=== PATIENT | female | born 1950 | race Caucasian/White ===

== ENCOUNTER → 2017-08-18 | Outpatient (CLI) | payer OTHER, MEDICARE | LOC: BRMIMAGING 15:02 | DX: Z12.31 Encounter for screening mammogram for malignant neoplasm of breast (principal); Z80.3 Family history of malignant neoplasm of breast | CPT/HCPCS: G0202 ==

== ENCOUNTER 2018-04-27 05:11 | Inpatient (IN) | payer OTHER, MEDICARE ==
[2018-04-27] MEDS ORDERED: LIDOCAINE 1% 2 ML INJ ID PRN (05:45)
[2018-04-27] MEDS ORDERED: LR 1,000 ML IV ONE (05:45)
--- NOTE | 2018-04-27 06:50 | PDHPUP ---
History & Physical Update H&P update statement: This history and physical update is based on an assessment of the patient which was completed after admission or registration (within 24 hours), but prior to the surgery/procedure. H&P update: H&P reviewed & patient examined, no change in patient's condition since H&P completed (All questions answered. Consents signed and site marked.)
[2018-04-27] MEDS ORDERED: THROMBIN (BOVINE) 20,000 UNIT VIAL TP ONE ×3 (06:51→12:02)
[2018-04-27] MEDS ORDERED: BUPIVACAINE 0.25% 30 ML SDV ONE (06:52)
[2018-04-27] MEDS ORDERED: BACITRACIN 50,000 UNITS/10 ML SYR IRR ONE ×3 (06:52→12:20)
[2018-04-27] MEDS ORDERED: CHLORHEXIDINE GLUC HIBICLENS 118 ML BTL TP ONE (06:53)
[2018-04-27] MEDS ORDERED: VANCOMYCIN 1 GM VIAL ONE ×2 (06:53→13:21)
[2018-04-27] MEDS ORDERED: EPINEPHrine 1 MG/ML INJ ONE (06:53)
[2018-04-27] MEDS ORDERED: GABAPENTIN 300 MG CAP PO ONE (07:02)
[2018-04-27] MEDS ORDERED: morphINE SR 15 MG TAB PO ONE (07:02)
[2018-04-27] MEDS ORDERED: ACETAMINOPHEN 500 MG TAB PO ONE (07:02)
[2018-04-27] MEDS ORDERED: ceFAZolin 2 GM/DEXTROSE 100 ML IV ONE (07:02)
--- NOTE | 2018-04-27 07:28 | PDANEPAE ---
ANE Past Medical History - Cardiovascular History Hx Hypertension: No Hx Arrhythmias: No Hx Chest Pain: No Hx Coronary Artery / Peripheral Vascular Disease: No Hx CHF / Valvular Disease: No Hx Palpitations: No Cardiovascular History Comment: HX OF LOW BP - Pulmonary History Hx COPD: No Hx Asthma/Reactive Airway Disease: No Hx Recent Upper Respiratory Infection: No Hx Oxygen in Use at Home: No Hx Sleep Apnea: No Sleep Apnea Screening Result - Last Documented: Negative - Neurologic History Hx Cerebrovascular Accident: No Hx Seizures: No Hx Dementia: No - Endocrine History Hx Diabetes: No Endocrine History Comment: HYPOTHYROID - Renal History Hx Renal Disorders: No - Liver History Hx Hepatic Disorders: No - Neurological & Psychiatric Hx Hx Neurological and Psychiatric Disorders: Yes Neurological / Psychiatric History Comment: DEPRESSION - Cancer History Hx Cancer: Yes Cancer History Comment: COLON - Congenital Disorder History Hx Congenital Disorders: Yes Congenital History Comment: SCOLOSIS - GI History Hx Gastrointestinal Disorders: Yes Gastrointestinal History Comment: GASTRIC BYPASS 2000. GERD - Other Health History Other Health History: FLAT BACK. DDD. NT JANIA TOES - Chronic Pain History Chronic Pain: Yes (LOWER AND MIDDLE BACK,SOMETIME CERVICAL) - Surgical History Prior Surgeries: FAILED ATTEMPT AT HARDWARE REMVL AND REVISION DUE TO CARDIAC ARREST 11/2017 AT [facility]. LUMBAR FUSION/SACROPELVIS FUSION 2012. LT ILIAC VEIN ANGIOPLASTY. NEURO STIMULATOR 2013. JANIA CATARACT. TONSILLECTOMY. COLECTOMY FOR CA 1994. TUBAL LIGATION. JANIA REMVL GANGLION CYST. GASTRIC BYPASS 2000 ANE Review of Systems Review of Systems: - Exercise capacity METS (RN): 1 METS ANE Patient History - Allergies Allergies/Adverse Reactions: alendronate sodium [From Fosamax] Allergy (Severe, Verified 08/31/15 13:47) Vomiting amoxicillin trihydrate [From Augmentin] Allergy (Severe, Verified 08/31/15 13:47 ) Vomiting codeine [Codeine] Allergy (Severe, Verified 08/31/15 13:47) Vomiting metformin HCl [From Glucophage] Allergy (Severe, Verified 08/31/15 13:47) N/V NSAIDS (Non-Steroidal Anti-Inflamma Allergy (Severe, Verified 08/31/15 13:47) HIVES, VOMITING potassium clavulanate [From Augmentin] Allergy (Severe, Verified 08/31/15 13:47) Vomiting pregabalin [From Lyrica] Allergy (Severe, Verified 08/31/15 13:47) VOMITING, HIVES Sulfa (Sulfonamide Antibiotics) [Sulfa(Sulfonamide Antibiotics)] Allergy (Severe , Verified 08/31/15 13:47) HIVES, VOMITING acetaminophen [From Darvocet-N 100] Allergy (Intermediate, Verified 08/31/15 13: 47) Hives doxycycline Allergy (Intermediate, Verified 08/31/15 13:47) DIARRHEA, HIVES propoxyphene napsylate [From Darvocet-N 100] Allergy (Intermediate, Verified 09:04) Hives morphine Allergy (Unknown, Verified 08/12/13 09:04) Hives - Home Medications Home Medications: Abaloparatide [Tymlos] 1.56 ml SQ HS 04/23/18 [Last Taken 04/26/18 22:00] Calcium Carb W/Vit D [Calcium Carb W/Vit D 500/200 (*)] 500 mg PO BID 04/23/18 [ Last Taken 04/20/18] Cholecalciferol Vit D3 [Vitamin D3 2000 units tab (OTC)] 2,000 units PO DAILY [Last Taken 04/20/18] Cyanocobalamin [Vitamin B12 1000MCG/ML (*)] 1,000 mcg IM Q30D 04/23/18 [Last Taken 04/20/18] DULoxetine [Cymbalta 60 MG (*)] 120 mg PO DAILY 04/23/18 [Last Taken 04/27/18 03 :15] Esomeprazole Magnesium [Nexium] 20 mg PO DAILY 04/23/18 [Last Taken 04/27/18 03: 15] Herbals/Supplements -Info Only 1 ea PO DAILY 04/23/18 [Last Taken 04/20/18] LORazepam [Ativan (*)] 1 mg PO HS 04/23/18 [Last Taken 04/26/18 22:00] Levothyroxine [Synthroid 125 mcg (*)] 125 mcg PO DAILY06 04/23/18 [Last Taken 03:15] Multivitamins [Multivitamin (*)] 1 each PO DAILY 04/23/18 [Last Taken 04/20/18] [place]-3 Fatty Acids [Fish Oil 1000 mg (*)] 1,000 mg PO BID 04/23/18 [Last Taken 04/20/18] Tizanidine HCl 4 mg PO Q8HRS PRN 04/23/18 [Last Taken 04/27/18 03:30] oxyCODONE IR [Oxycodone Ir (*)] 15 mg PO Q6HRS PRN 04/23/18 [Last Taken 03:15] traZODone [traZODone 150MG (*)] 300 mg PO HS 04/23/18 [Last Taken 04/26/18 22:00 ] - NPO status NPO Since - Liquids (Date): 04/27/18 NPO Since - Liquids (Time): 03:15 NPO Since - Solids (Date): 04/26/18 NPO Since - Solids (Time): 22:00 - Smoking Hx Smoking Status: Never smoked ANE Labs/Vital Signs - Vital Signs Blood Pressure: 85/50 Heart Rate: 62 Respiratory Rate: 16 O2 Sat (%): 95 Height: 162.56 cm Weight: 71.668 kg ANE Physical Exam - Airway Neck exam: FROM Mallampati Score: Class 2 Mouth exam: dentures - Pulmonary Pulmonary: no respiratory distress - Cardiovascular Cardiovascular: regular rate and rhythym - ASA Status ASA Status: III ANE Anesthesia Plan Anesthesia Plan: general endotracheal anesthesia (art line, possible blood products. PION risks discussed)
[2018-04-27] MEDS ORDERED: PROPOFOL/EMULSION 500 MG/50 ML BOTTLE IV ONE ×3 (07:34→10:54)
[2018-04-27] MEDS ORDERED: ROCURONIUM 50 MG/5 ML VIAL ONE (07:34)
[2018-04-27] MEDS ORDERED: DEXAMETHASONE 4 MG/ML VIAL ONE (07:35)
[2018-04-27] MEDS ORDERED: LIDOCAINE 2% 100 MG/5 ML SYR ONE (07:35)
[2018-04-27] MEDS ORDERED: PHENYLEPHRINE 10 MG/ML SDV ONE (07:35)
[2018-04-27] MEDS ORDERED: PHENYLEPHRINE HCL 100 MCG/ML SYR ONE (07:35)
[2018-04-27] MEDS ORDERED: CITRATE DEXTROSE SOLN 500 ML BAG ONE ×2 (09:08→11:19)
[2018-04-27] MEDS ORDERED: SURGIFLO MATRIX KIT WITH THROMBIN 8 ML TP ONE ×2 (09:39→11:50)
[2018-04-27] MEDS ORDERED: DEXMEDETOMIDINE IN 0.9 % NACL 100 ML IV ONE (13:30)
[2018-04-27] MEDS ORDERED: BUPIVACAINE 0.5% 30 ML SDV ONE (13:40)
--- NOTE | 2018-04-27 14:36 | POSTOPPROG ---
Post Op Note Date of Operation: 04/27/18 Surgeon: Drew Steinberg Portrait Photographer: Romaine Godfrey Anesthesiologist: nan noonan Anesthesia: GET(General Endotracheal) Pre-op Diagnosis: degenerative scoliosis Post-op Diagnosis: degenerative scoliosis Indication: deformity and chronic pain Procedure: [id number] PSF, scoliosis deformity correction Findings: see full op note Inf/Abcess present in the surg proc area at time of surgery?: No Depth: Organ Space EBL: Greater than 1000 Drains: Mark Franco
[2018-04-27] MEDS ORDERED: diphenhydrAMINE 25 MG CAP PO PRN (14:38)
[2018-04-27] MEDS ORDERED: LACTULOSE 20 GM/30 ML UDCUP PO PRN (14:38)
[2018-04-27] MEDS ORDERED: BISACODYL 10 MG SUPP PR PRN (14:38)
[2018-04-27] MEDS ORDERED: ONDANSETRON 4 MG/2 ML VIAL IVP PRN ×2 (14:38→15:02)
[2018-04-27] MEDS ORDERED: ONDANSETRON DISINTEGRATING 4 MG TAB PO PRN (14:38)
[2018-04-27] MEDS ORDERED: MAGNESIUM HYDROXIDE 30 ML UDCUP PO PRN (14:38)
[2018-04-27] MEDS ORDERED: CYANO/VITAMIN B12 1000 MCG/ML VIAL IM SCH (15:00)
[2018-04-27] MEDS ORDERED: DEXMEDETOMIDINE HCL 400 MCG in NS 100 ML IV SCH (15:00)
[2018-04-27] MEDS ORDERED: ALBUTEROL 3 ML DEYVIAL IH PRN (15:02)
[2018-04-27] MEDS ORDERED: NALOXONE HCL 0.4 MG/ML INJ IVP PRN (15:02)
[2018-04-27] MEDS ORDERED: HYDROmorphONE/DILAUDID 1 MG/ML INJ IVP PRN (15:02)
--- NOTE | 2018-04-27 15:04 | POSTANESTH ---
Post Anesthetic Evaluation Cardiovascular Status: Similar to Pre-Op Cond Respiratory Status: Similar to Pre-op Cond. Level of Consciousness/Mental Status: Mildly Sleepy, Arousable Pain Control: Inadeq, Add Tx Required Nausea/Vomiting Control: Adequate, Prn Tx Ordered Complications Possibly Related to Anesthesia: None Noted
[2018-04-27] MEDS ORDERED: HYDROmorphONE/DILAUDID 6 MG/30 ML PCA IV PRN (15:15)
--- NOTE | 2018-04-27 15:57 | NEUSURGPN ---
Date of Surgery: 04/27/18 Post Op Day: 0 Assessment/Plan: 68F s/p [id number] with L12 TLIF and L3 PSO. >1L blood loss intraprocedure. To ICU overnight for pain control and hemodynamics LR 100ml/hr precedex and dilaudid WAFER FABRICATION OPERATOR for pain control ADAT no brace needed follow H&H in AM PT/OT JPX2 to full suction DVT ppx, TRANG's, SCD's, IVC placed preoperatively, Lovenox POD#1 Stinson out POD#1 Pt seen by and dw Dr. Valadez Subjective: no back pain, complaining of right sided abdominal pain Objective: VSS NAD speech clear and fluent, no facial droop [id number] grossly intact MAEx4, 5/5= SILT incision dressed, CDI. JPx2 to full suction. Urinary Catheter in Place: Yes Urinary Catheter Indication: Accurate I & O Required Neurosurgery Physical Exam - Vitals, I&O, Labs I and O 04/26/18 04/27/18 04/28/18 05:59 05:59 05:59 Weight 71.668 kg Vital Signs Temp Pulse Resp BP Pulse Ox 37.2 C 112 H 24 H 159/138 H 99 04/27/18 15:09 04/27/18 15:09 04/27/18 15:09 04/27/18 15:09 04/27/18 15:09 ICD10 Worksheet Patient Problems: Problems Problem Status Onset Bacteremia Acute
--- NOTE | 2018-04-27 16:30 | PDMN ---
Medical Necessity Medical necessity: Mcare IP only surgery; [id number] Revision w/L12 TLIF & L3 PSO (cpt 88686, 60595, [id number], 46537)
[2018-04-27] MEDS: HYDROmorphONE/DILAUDID 1 MG/ML INJ IVP PRN ×2 (17:01→20:42)
[2018-04-27] MEDS: DEXMEDETOMIDINE IN 0.9 % NACL 100 ML IV SCH ×2 (17:23→22:30)
[2018-04-27] MEDS: LR 1,000 ML IV SCH ×2 (17:23→20:51)
[2018-04-27] MEDS: traZODone 100 MG TAB PO SCH (20:37)
[2018-04-27] MEDS: ACETAMINOPHEN 500 MG TAB PO SCH (20:38)
[2018-04-27] MEDS: CALCIUM CARB W/VIT D 500 MG TAB PO SCH (20:39)
[2018-04-27] MEDS: GABAPENTIN 300 MG CAP PO SCH (20:39)
[2018-04-27] MEDS: SENNOSIDES/DOCUSATE SODIUM TAB PO SCH (20:39)
[2018-04-27] MEDS: ceFAZolin 2 GM/DEXTROSE 100 ML IV SCH (22:00)
[2018-04-28] MEDS: HYDROmorphONE/DILAUDID 1 MG/ML INJ IVP PRN ×2 (03:45→09:25)
[2018-04-28] MEDS: ceFAZolin 2 GM/DEXTROSE 100 ML IV SCH (06:17)
[2018-04-28] MEDS: GABAPENTIN 300 MG CAP PO SCH ×3 (06:17→21:26)
[2018-04-28] MEDS: ACETAMINOPHEN 500 MG TAB PO SCH ×3 (06:18→21:27)
[2018-04-28] MEDS: oxyCODONE IR 5 MG TAB PO PRN ×2 (06:18→15:53)
[2018-04-28] MEDS: LR 1,000 ML IV SCH ×2 (06:23→16:34)
[2018-04-28] MEDS: LEVOTHYROXINE 125 MCG TAB PO SCH (09:24)
[2018-04-28] MEDS: ENOXAPARIN 40 MG/0.4 ML SYR SC SCH (09:24)
[2018-04-28] MEDS: SENNOSIDES/DOCUSATE SODIUM TAB PO SCH ×2 (09:24→21:26)
[2018-04-28] MEDS: MULTIVITAMINS 1 EACH TAB PO SCH (09:25)
[2018-04-28] MEDS: DULoxetine 60 MG CAP PO SCH (09:25)
[2018-04-28] MEDS: PANTOPRAZOLE SODIUM 40 MG TAB PO SCH (09:25)
[2018-04-28] MEDS: CHOLECALCIFEROL VIT D3 2,000 UNITS TAB/CAP PO SCH (09:26)
[2018-04-28] MEDS: CALCIUM CARB W/VIT D 500 MG TAB PO SCH ×2 (09:26→21:26)
[2018-04-28] MEDS: DIAZEPAM 5 MG TAB PO PRN ×2 (11:25→19:23)
--- NOTE | 2018-04-28 12:20 | NEUSURGPN ---
Date of Surgery: 04/27/18 Post Op Day: 1 Assessment/Plan: POD#1 68F s/p [id number] with L12 TLIF and L3 PSO. >1L blood loss intraprocedure. continue ICU overnight for pain control and hemodynamics, wean precedex, Dilaudid PROPERTY ECONOMIST if needed for pain, titrate orals. continue LR 100ml/hr 500mL bolus x2 for hyptension, tachycardia ADAT no brace needed continue to follow H&H while drains productive, 10. this am PT/OT -goal for to chair today Aggressive bowel protocol. JPX2 to full suction DVT ppx, TRANG's, SCD's, IVC placed preoperatively, Lovenox POD#1 Stinson out POD#1 [facility] late next week for deconditioning. dw Dr. Valadez Subjective: continues to have back pain and some right sided abdominal pain. Objective: NAD vitals, hypotensive and mild tachycardia noted EOMI, PEARLA no facial droop speech clear and fluent MAEx4, antigravity, BLE strenght appears full SILT JPX2 to full suction, incision CDI. left 200, right [address]: Yes Urinary Catheter Indication: Accurate I & O Required Catheter Insertion Date: 04/27/18 - Physician Discussed Patient with : Allyson Neurosurgery Physical Exam - Vitals, I&O, Labs I and O 04/27/18 04/28/18 04/29/18 05:59 05:59 05:59 Intake Total 2605.9 Output Total 815 Balance 1790.9 Weight 71.668 kg Intake: Oral (ml) 300 IV Intake (ml) 2000 IV Infused (ml) 305.9 Dexmedetomidine HCl 400 64.9 mcg In Ns 100 ml @ Titrate IV CONT GERA Rx#: [id number] Lr 1,000 ml @ 100 mls/hr 241 IV CONT GERA Rx#: [id number] Output: Urine (ml) 410 Catheter 410 SHAKIRA Drain Output (ml) 405 Left Posterior 205 Right Posterior 200 Vital Signs Temp Pulse Resp BP Pulse Ox 36.9 C 119 H 19 102/70 95 04/28/18 10:00 04/28/18 10:00 04/28/18 10:00 04/28/18 10:00 04/28/18 10:00 Laboratory Results 04/28/18 06:14 04/28/18 06:14 ICD10 Worksheet Patient Problems: Problems Problem Status Onset Bacteremia Acute
--- NOTE | 2018-04-28 12:34 | ASMTCMCOM ---
CM Note CM Note Notes: 04/28/2018 Case Management Note Reviewed chart, discussed with pharmacist. Pt admitted for flat back spinal deformity and subsequently underwent surgery: [id number] revision/extension thoracic fusion and scoliosis deformity correction. Pt has PT and OT evals ordered. Awaiting recommendations. Per chart pt is and has family support from children. Case Management d/c poc: to be determined. Case Management to follow. Date Signed: 04/28/2018 12:33 PM Electronically Signed By:Breanne Santiago RN
[2018-04-28] MEDS: traZODone 100 MG TAB PO SCH (21:26)
[2018-04-29] MEDS: GABAPENTIN 300 MG CAP PO SCH ×3 (05:51→21:31)
[2018-04-29] MEDS: DIAZEPAM 5 MG TAB PO PRN ×2 (05:52→14:37)
[2018-04-29] MEDS: LEVOTHYROXINE 125 MCG TAB PO SCH (05:52)
[2018-04-29] MEDS: oxyCODONE IR 5 MG TAB PO PRN ×3 (05:52→18:40)
[2018-04-29] MEDS: ACETAMINOPHEN 500 MG TAB PO SCH ×3 (06:05→21:30)
[2018-04-29] MEDS: LR 1,000 ML IV SCH (07:32)
[2018-04-29] MEDS: SENNOSIDES/DOCUSATE SODIUM TAB PO SCH ×2 (08:39→20:14)
[2018-04-29] MEDS: PANTOPRAZOLE SODIUM 40 MG TAB PO SCH (08:41)
[2018-04-29] MEDS: CHOLECALCIFEROL VIT D3 2,000 UNITS TAB/CAP PO SCH (08:42)
[2018-04-29] MEDS: CALCIUM CARB W/VIT D 500 MG TAB PO SCH ×2 (08:42→20:12)
[2018-04-29] MEDS: MULTIVITAMINS 1 EACH TAB PO SCH (08:42)
[2018-04-29] MEDS: DULoxetine 60 MG CAP PO SCH (08:43)
[2018-04-29] MEDS: ENOXAPARIN 40 MG/0.4 ML SYR SC SCH (08:44)
[2018-04-29] MEDS: POLYETHYLENE GLYCOL 3350 17 GM PKT PO PRN (08:45)
--- NOTE | 2018-04-29 10:43 | NEUSURGPN ---
Date of Surgery: 04/27/18 Post Op Day: 2 Assessment/Plan: POD#2 68F s/p [id number] with L12 TLIF and L3 PSO. >1L blood loss intraprocedure. may transfer to floor today, dependent on team assessment of continued tachycardia. continue fluids given Tachycardia, will change to NS w/ K today no brace needed continue to follow H&H while drains productive, 8.03/14 this am PT/OT -continue to increase activity. Aggressive bowel protocol, miralax TID JPX2 to full suction DVT ppx, TRANG's, SCD's, IVC placed preoperatively, Lovenox [facility]po-[facility] late next week for deconditioning. dw Dr. Valadez Subjective: complains of 9/10 post operative back pain today, but comfortable and smiling. preoperative back pain is gone. Objective: NAD VSS, continues with mild tachycardia. AAOx4 EOMI, PEARLA speech clear and fluent, no droop MAEx4, 5/5= SILT incision dressed, some saturation on superior portion JPx2 200/185 out Urinary Catheter in Place: No Catheter Insertion Date: 04/27/18 - Physician Discussed Patient with : Allyson Neurosurgery Physical Exam - Vitals, I&O, Labs I and O 04/28/18 04/29/18 04/30/18 05:59 05:59 05:59 Intake Total 2605.9 4303 Output Total 815 1110 665 Balance 1790.9 3193 -665 Weight 71.668 kg Intake: Oral (ml) 300 1050 IV Intake (ml) 2000 1200 IV Infused (ml) 305.9 2053 Dexmedetomidine HCl 400 64.9 mcg In Ns 100 ml @ Titrate IV CONT GERA Rx#: [id number] Lr 1,000 ml @ 100 mls/hr 241 2053 IV CONT GERA Rx#: [id number] Output: Urine (ml) 410 725 550 Bedpan 350 Bedside Commode 550 200 Catheter 410 175 SHAKIRA Drain Output (ml) 405 385 115 Left Posterior 205 200 30 Right Posterior 200 185 85 Other: Number of Voids Bedside Commode 2 Number of Stools Bedside Commode 0 Vital Signs Temp Pulse Resp BP Pulse Ox 36.6 C 120 H 23 H 104/51 L 96 04/29/18 08:00 04/29/18 10:00 04/29/18 10:00 04/29/18 10:00 04/29/18 08:00 Laboratory Results 04/29/18 05:30 04/29/18 05:30 ICD10 Worksheet Patient Problems: Problems Problem Status Onset Bacteremia Acute
[2018-04-29] MEDS: NS W/ 20 KCl/L 1,000 ML IV SCH ×2 (12:27→22:28)
--- NOTE | 2018-04-29 14:24 | PDINTPN ---
Food Preparation Supervisor Progress Note Assessment/Plan: 68 F s/p back surgery complicated by > 1 liter EBL with mild hypotension, but extubated postop. Hx of cardiac arrest in remote past so observed in ICU. Her BP was soft and HR elevated with sinus tachycardia which responded well to IVF * Back surgery- stable. Pain control is challenging since she appears without excess pain but reports 9/10. Consider Ultram * Tachycardia- likely related to volume. At baseline HR is about 100-110 and sinus. Continue IVF * * OK for floor Subjective: pain still an issue, but improved hemodynamics Objective: Vital Signs Temp Pulse Resp BP Pulse Ox 37.1 C 108 H 14 133/55 H 99 04/29/18 12:00 04/29/18 12:00 04/29/18 12:00 04/29/18 12:00 04/29/18 12:00 Laboratory Results 04/29/18 05:30 04/29/18 05:30 04/28/18 04/29/18 04/30/18 05:59 05:59 05:59 Intake Total 2605.9 4303 675 Output Total 815 1110 860 Balance 1790.9 3193 -185 Physical Exam - Physical Exam General Appearance: alert, no apparent distress, obese EENT: PERRL/EOMI Neck: supple Respiratory: lungs clear, normal breath sounds, No respiratory distress, No accessory muscle use Cardiac/Chest: regular rate, rhythm, No edema Abdomen: non-tender, soft, No distended Skin: normal color, warm/dry, No cyanosis Lymphatic: no adenopathy Extremities: No pedal edema Neuro/Psych: alert, normal mood/affect, oriented x 3 ICD10 Worksheet Patient Problems: Problems Problem Status Onset Bacteremia Acute
[2018-04-29] MEDS: HYDROmorphONE/DILAUDID 1 MG/ML INJ IVP PRN (19:46)
[2018-04-29] MEDS: traZODone 100 MG TAB PO SCH (20:12)
[2018-04-30] MEDS: ACETAMINOPHEN 500 MG TAB PO SCH ×3 (05:01→22:07)
[2018-04-30] MEDS: GABAPENTIN 300 MG CAP PO SCH ×3 (05:01→21:02)
[2018-04-30] MEDS: LEVOTHYROXINE 125 MCG TAB PO SCH (05:01)
[2018-04-30] MEDS: oxyCODONE IR 5 MG TAB PO PRN ×3 (06:29→16:28)
[2018-04-30] MEDS: ENOXAPARIN 40 MG/0.4 ML SYR SC SCH (09:08)
[2018-04-30] MEDS: CHOLECALCIFEROL VIT D3 2,000 UNITS TAB/CAP PO SCH (09:08)
[2018-04-30] MEDS: DULoxetine 60 MG CAP PO SCH (09:08)
[2018-04-30] MEDS: SENNOSIDES/DOCUSATE SODIUM TAB PO SCH ×2 (09:08→21:00)
[2018-04-30] MEDS: CALCIUM CARB W/VIT D 500 MG TAB PO SCH ×2 (09:08→20:58)
[2018-04-30] MEDS: MULTIVITAMINS 1 EACH TAB PO SCH (09:08)
[2018-04-30] MEDS: PANTOPRAZOLE SODIUM 40 MG TAB PO SCH (09:08)
--- NOTE | 2018-04-30 09:37 | NEUSURGPN ---
Assessment/Plan: Assessment/Plan: POD#3 68F s/p [id number] with L12 TLIF and L3 PSO. >1L blood loss intraprocedure. may transfer to floor today, dependent on team assessment of continued tachycardia. continue fluids given Tachycardia, will change to NS w/ K today no brace needed continue to follow H&H while drains productive, H:H this am pending PT/OT -continue to increase activity. Aggressive bowel protocol, miralax TID JPX2, will d/c left SHAKIRA today DVT ppx, TRANG's, SCD's, IVC placed preoperatively, Lovenox Dispo-[facility] late next week for deconditioning. Subjective: low back pain, tolerable with medications. Objective: NAD VSS, continues with mild tachycardia. AAOx4 MAEx4, 5/5= incision dressed, some saturation on superior portion Catheter Insertion Date: 04/27/18 - Physician Discussed Patient with : Allyson Neurosurgery Physical Exam - Vitals, I&O, Labs I and O 04/29/18 04/30/18 05/01/18 05:59 05:59 05:59 Intake Total 4303 3575 Output Total 1110 1150 50 Balance 3193 2425 -50 Intake: Oral (ml) 1050 1575 IV Intake (ml) 1200 IV Infused (ml) 2052 1999 Lr 1,000 ml @ 100 mls/hr 2052 IV CONT GERA Rx#: [id number] NS W/ 20 KCl/L 1,000 ml @ 2000 100 mls/hr IV CONT GERA Rx#:[id number] Output: Urine (ml) 725 775 Bedpan 450 Bedside Commode 550 325 Catheter 175 SHAKIRA Drain Output (ml) 385 375 50 Left Posterior 200 115 30 Right Posterior 185 260 20 Other: Number of Voids Bedpan 1 Bedside Commode 2 1 Toilet 1 Number of Stools Bedside Commode 0 2 Vital Signs Temp Pulse Resp BP Pulse Ox 36.7 C 116 H 15 138/65 H 98 04/30/18 08:40 04/30/18 08:40 04/30/18 08:40 04/30/18 08:40 04/30/18 08:40 Laboratory Results 04/29/18 05:30 ICD10 Worksheet Patient Problems: Problems Problem Status Onset Bacteremia Acute
--- NOTE | 2018-04-30 14:04 | PDINTPN ---
Laboratory Administrative Director Progress Note Assessment/Plan: 68 F s/p back surgery complicated by > 1 liter EBL with mild hypotension, but extubated postop. Hx of cardiac arrest in remote past so observed in ICU. Her BP was soft and HR elevated with sinus tachycardia which responded well to IVF * Back surgery- stable. Pain control is challenging since she appears without excess pain but reports 9/10. Consider Ultram * Tachycardia- likely related to volume. At baseline HR is about 100-110 and sinus. Continue IVF. Complained of thigh pain today but bilateral US negative for DVT. * * OK for floor 04/30/18 13:52 Subjective: no events but continues with hallucinations Objective: Vital Signs Temp Pulse Resp BP Pulse Ox 37.0 C 110 H 19 133/69 H 97 04/30/18 12:00 04/30/18 12:00 04/30/18 12:00 04/30/18 12:00 04/30/18 12:00 Laboratory Results 04/30/18 12:30 04/30/18 09:00 04/29/18 04/30/18 05/01/18 05:59 05:59 05:59 Intake Total 4303 3575 Output Total 1110 1150 750 Balance 3193 2425 -750 Physical Exam - Physical Exam General Appearance: alert, no apparent distress, obese, other (confused) EENT: PERRL/EOMI Neck: supple Respiratory: lungs clear, normal breath sounds, No respiratory distress, No accessory muscle use Cardiac/Chest: regular rate, rhythm, No edema Abdomen: non-tender, soft, No distended Skin: normal color, warm/dry, No cyanosis Lymphatic: no adenopathy Extremities: No pedal edema Neuro/Psych: alert, normal mood/affect, cognition abnormalities ICD10 Worksheet Patient Problems: Problems Problem Status Onset Bacteremia Acute
--- NOTE | 2018-04-30 14:46 | ASMTCMCOM ---
CM Note CM Note Notes: This is patient's 4th back surgery and she has been to numerous Rehab facilities. She does not want to go to [facility] [place] or to [place]. She is trying to decide between [facility] and [facility]. This CM will send referral to both until she makes a decision. Date Signed: 04/30/2018 02:45 PM Electronically Signed By:Dee Dee Jean Baptiste LCSW
[2018-04-30] MEDS: traZODone 100 MG TAB PO SCH (20:58)
[2018-04-30] MEDS: NS W/ 20 KCl/L 1,000 ML IV SCH (23:58)
[2018-05-01] MEDS: oxyCODONE IR 5 MG TAB PO PRN (00:04)
--- NOTE | 2018-05-01 22:30 | GPROG ---
[f rep st] PROGRESS NOTE PROGRESS NOTE SUBJECTIVE: The patient was seen and examined in the step-down unit. She is complaining of some abdominal pain and has not been passing gas recently. She denies any lower extremity pain, numbness, tingling, or weakness. EXAM: VITAL SIGNS: Vitals are stable. GENERAL: The patient is awake and alert. Mood and affect is appropriate. HEENT: Pupils equal and reactive. Facial expression is symmetrical. Speech is fluent. EXTREMITIES: Muscle strength is well preserved in upper and lower extremities with a 5/5. Incision with dressing CVI. X-RAYS: X-rays were reviewed and hardware is in good placement. SHAKIRA output was 160 cc in the last 24 hours. ASSESSMENT: In summary, the patient is a 68-year-old female who underwent surgery on April 27, [address] Valadez and Dr. Murillo, with a T10 to pelvis posterior screw fixation with lumbar 3 PHARMACY INTERN and L1-2 transforaminal lumbar interbody fusion. PLAN: Plan today is to continue to work on pain control, as well as increasing the patient's activity level with physical and occupational therapy. She does not need a brace. We appreciate Medicine and Critical Care following. Due to her abdominal pain today, we will work on having a bowel movement and also obtain an abdominal x-ray to rule out a postoperative ileus. The patient is stable and may be transferred to the floor. Treatment plan was discussed with Dr. Valadez. This note is being dictated rather then entered into [facility] directly, as [facility] is currently down. Patient was seen at 8:00 a.m. on May 01, 2018. /[id number]/MODL MTDD
[2018-05-02 04:59] LABS: PLATELET COUNT 125 10^3/uL (150-400)
[2018-05-02] MEDS: ACETAMINOPHEN 500 MG TAB PO SCH ×5 (05:00→21:47)
[2018-05-02] MEDS: ENOXAPARIN 40 MG/0.4 ML SYR SC SCH ×2 (05:13→08:22)
[2018-05-02] MEDS: LEVOTHYROXINE 125 MCG TAB PO SCH ×2 (05:13→06:28)
[2018-05-02] MEDS: CHOLECALCIFEROL VIT D3 2,000 UNITS TAB/CAP PO SCH ×2 (05:13→08:23)
[2018-05-02] MEDS: GABAPENTIN 300 MG CAP PO SCH ×6 (05:13→21:47)
[2018-05-02] MEDS: CALCIUM CARB W/VIT D 500 MG TAB PO SCH ×4 (05:13→20:12)
[2018-05-02] MEDS: DULoxetine 60 MG CAP PO SCH ×2 (05:13→08:22)
[2018-05-02] MEDS: MULTIVITAMINS 1 EACH TAB PO SCH ×2 (05:13→08:23)
[2018-05-02] MEDS: SENNOSIDES/DOCUSATE SODIUM TAB PO SCH ×3 (05:14→20:12)
[2018-05-02] MEDS: PANTOPRAZOLE SODIUM 40 MG TAB PO SCH ×2 (05:14→08:23)
[2018-05-02] MEDS: traZODone 100 MG TAB PO SCH ×2 (05:14→21:47)
[2018-05-02] MEDS: oxyCODONE IR 5 MG TAB PO PRN ×4 (06:36→21:47)
[2018-05-02] MEDS: POLYETHYLENE GLYCOL 3350 17 GM PKT PO PRN (08:22)
--- NOTE | 2018-05-02 08:53 | SOAPPROG ---
SOAP Progress Note Assessment/Plan: Assessment: 68 yo female POD #4 s/p [id number] fusion with L3 PSO and L1/2 TLIF. Doing well today. Denies numbness, tingling or weakness. Plan: Transfer to floor today PT/OT as tolerated continue SHAKIRA drain RN will change dressing this AM follow H/H D/W Dr Valadez 05/02/18 08:50 05/02/18 08:53 05/02/18 08:57 Subjective: Awake, alert, in bedside chair. Feeling good. No new issues per pt and RN Objective: Vital Signs Temp Pulse Resp BP Pulse Ox 36.8 C 89 17 122/71 H 96 05/02/18 07:40 05/02/18 07:40 05/02/18 07:40 05/02/18 07:40 05/02/18 07:40 Laboratory Results 05/02/18 07:49 04/30/18 09:00 05/01/18 05/02/18 05/03/18 05:59 05:59 05:59 Intake Total 2198 1500 Output Total 1460 50 Balance 738 1450 H/H: 7.2/22.4 Neuro: Chronic tinlgling in bilateral toes 5/5 strength in bilateral LE sens +LT except toes Incision : CDI SHAKIRA: 50 ml overniht ICD10 Worksheet Patient Problems: Problems Problem Status Onset Bacteremia Acute
--- NOTE | 2018-05-02 09:55 | PDINTPN ---
Water Plumber Progress Note Assessment/Plan: 68 F s/p back surgery complicated by > 1 liter EBL with mild hypotension, but extubated postop. Hx of cardiac arrest in remote past so observed in ICU. Her BP was soft and HR elevated with sinus tachycardia which responded well to IVF * Back surgery- stable. Pain control remains challenging. Consider Ultram * Tachycardia- likely related to volume. At baseline HR is about 100-110 and sinus. Continue IVF. Complained of thigh pain but bilateral US negative for DVT. Resolved as of 05/02 AM * * OK for floor 04/30/18 13:52 05/02/18 09:54 Subjective: no events overnight Objective: Vital Signs Temp Pulse Resp BP Pulse Ox 36.8 C 79 13 73/45 L 97 05/02/18 07:40 05/02/18 09:43 05/02/18 09:43 05/02/18 09:43 05/02/18 09:43 Laboratory Results 05/02/18 07:49 04/30/18 09:00 05/01/18 05/02/18 05/03/18 05:59 05:59 05:59 Intake Total 2198 1500 Output Total 1460 50 Balance 738 1450 Physical Exam - Physical Exam General Appearance: alert, no apparent distress, obese EENT: PERRL/EOMI Neck: supple Respiratory: lungs clear, normal breath sounds, No respiratory distress, No accessory muscle use Cardiac/Chest: regular rate, rhythm, No edema Abdomen: non-tender, soft, No distended Skin: normal color, warm/dry, No cyanosis Lymphatic: no adenopathy Extremities: No pedal edema Neuro/Psych: alert, normal mood/affect, oriented x 3 ICD10 Worksheet Patient Problems: Problems Problem Status Onset Bacteremia Acute
[2018-05-02] MEDS ORDERED: ALBUMIN 5% 500 ML BOTTLE IV ONE (11:02)
[2018-05-02] MEDS ORDERED: ALBUMIN 5% 500 ML IV ONE (11:30)
[2018-05-02] MEDS: NS W/ 20 KCl/L 1,000 ML IV SCH (15:46)
[2018-05-02] MEDS: HYDROmorphONE/DILAUDID 1 MG/ML INJ IVP PRN (20:11)
[2018-05-03] MEDS: oxyCODONE IR 5 MG TAB PO PRN ×5 (04:37→22:01)
[2018-05-03] MEDS: ACETAMINOPHEN 500 MG TAB PO SCH ×3 (06:31→22:02)
[2018-05-03] MEDS: LEVOTHYROXINE 125 MCG TAB PO SCH (06:31)
[2018-05-03] MEDS: GABAPENTIN 300 MG CAP PO SCH ×3 (06:31→22:02)
--- NOTE | 2018-05-03 07:53 | NEUSURGPN ---
Assessment/Plan: Assessment/Plan: POD#6 68F s/p [id number] with L12 TLIF and L3 PSO. >1L blood loss intraprocedure. may transfer to floor today, dependent on repeat H:H continue to follow H&H while drains productive, H:H this am pending PT/OT -continue to increase activity. Aggressive bowel protocol, miralax TID JPX1, continue SHAKIRA this am. DVT ppx, TRANG's, SCD's, IVC placed preoperatively, Lovenox [facility] for deconditioning. Subjective: Some right leg pain but tolerable. Getting OOB Objective: NAD VSS, continues with mild tachycardia. AAOx4 MAEx4, 5/= incision dressed, Catheter Insertion Date: 04/27/18 - Physician Discussed Patient with : Allyson Neurosurgery Physical Exam - Vitals, I&O, Labs I and O 05/02/18 05/03/18 05/04/18 05:59 05:59 05:59 Intake Total 1500 2627 Output Total 50 130 Balance 1450 2497 Intake: Oral (ml) 400 350 IV Intake (ml) 500 IV Infused (ml) 1100 1177 Albumin 5% 500 ml @ As 500 Directed IV ONCE ONE Rx#: [id number] NS W/ 20 KCl/L 1,000 ml @ 1100 677 100 mls/hr IV CONT GERA Rx#:[id number] Packed Red Blood Cells ( 600 ml) Output: SHAKIRA Drain Output (ml) 50 130 Right Posterior 50 130 Other: Number of Voids Toilet 1 2 Number of Stools Toilet 0 Vital Signs Temp Pulse Resp BP Pulse Ox 36.4 C 83 18 134/77 H 93 05/02/18 19:48 05/03/18 04:00 05/03/18 04:00 05/03/18 04:00 05/03/18 04:00 Laboratory Results 05/02/18 17:40 04/30/18 09:00 ICD10 Worksheet Patient Problems: Problems Problem Status Onset Bacteremia Acute
[2018-05-03] MEDS: CALCIUM CARB W/VIT D 500 MG TAB PO SCH ×2 (08:18→20:52)
[2018-05-03] MEDS: SENNOSIDES/DOCUSATE SODIUM TAB PO SCH ×2 (08:18→20:52)
[2018-05-03] MEDS: PANTOPRAZOLE SODIUM 40 MG TAB PO SCH (08:18)
[2018-05-03] MEDS: DULoxetine 60 MG CAP PO SCH (08:18)
[2018-05-03] MEDS: ENOXAPARIN 40 MG/0.4 ML SYR SC SCH (08:18)
[2018-05-03] MEDS: CHOLECALCIFEROL VIT D3 2,000 UNITS TAB/CAP PO SCH (08:18)
[2018-05-03] MEDS: MULTIVITAMINS 1 EACH TAB PO SCH (08:18)
[2018-05-03] MEDS: HYDROmorphONE/DILAUDID 1 MG/ML INJ IVP PRN ×4 (11:44→20:52)
--- NOTE | 2018-05-03 12:26 | ASMTCMCOM ---
CM Note CM Note Notes: Patient is stable from back surgery although pain control remains challenging. DVT resolved as of 05/02/18. Patient is most likely ready to move to the floor today. SNF rehab is still plan for d/c. Patient needs to choose between [facility] and [facility]. Yuko from [facility] was here yesterday concerned about patient's hallucinations but those have resolved as of 05-03-18 today. CM will follow. Date Signed: 05/03/2018 12:25 PM Electronically Signed By:Kiara Miranda LCSW
--- NOTE | 2018-05-03 16:15 | ASMTCMCOM ---
CM Note CM Note Notes: Spoke with patient today who says her daughter and are reviewing the rehab programs. Spoke with Douglas, patient's , who states they prefer [facility] as their first choice. However, Earl from [facility] voiced some concerns regarding patient's recent symptom of hallucinations. [facility] called and stated they will take the patient. Left a message for Earl with [facility] to see if they are going to take patient or not.CM will follow. Date Signed: 05/03/2018 04:14 PM Electronically Signed By:Kiara Miranda LCSW
[2018-05-03] MEDS: traZODone 100 MG TAB PO SCH (22:01)
[2018-05-04] MEDS: oxyCODONE IR 5 MG TAB PO PRN ×6 (02:16→23:01)
[2018-05-04] MEDS: ACETAMINOPHEN 500 MG TAB PO SCH ×3 (06:16→23:01)
[2018-05-04] MEDS: LEVOTHYROXINE 125 MCG TAB PO SCH (06:17)
[2018-05-04] MEDS: GABAPENTIN 300 MG CAP PO SCH ×3 (06:17→23:01)
[2018-05-04] MEDS: CHOLECALCIFEROL VIT D3 2,000 UNITS TAB/CAP PO SCH (09:01)
[2018-05-04] MEDS: PANTOPRAZOLE SODIUM 40 MG TAB PO SCH (09:01)
[2018-05-04] MEDS: CALCIUM CARB W/VIT D 500 MG TAB PO SCH ×2 (09:01→19:30)
[2018-05-04] MEDS: MULTIVITAMINS 1 EACH TAB PO SCH (09:01)
[2018-05-04] MEDS: DULoxetine 60 MG CAP PO SCH (09:01)
[2018-05-04] MEDS: SENNOSIDES/DOCUSATE SODIUM TAB PO SCH ×2 (09:01→19:30)
[2018-05-04] MEDS: ENOXAPARIN 40 MG/0.4 ML SYR SC SCH (10:41)
--- NOTE | 2018-05-04 10:43 | GOP ---
[f rep st] OPERATIVE REPORT DATE OF OPERATION: 04/27/2018 SURGEON: Bubba Valadez MD MACHINE ASSEMBLER SUPERVISOR: Drew Steinberg P.A-.C. ANESTHESIA: GETA. PREOPERATIVE DIAGNOSIS: Prior L2 to the pelvis fusion with flat back deformity and kyphoscoliosis wi th intractable and extreme back pain. POSTOPERATIVE DIAGNOSIS: Prior L2 to the pelvis fusion with flat back deformity and kyphoscoliosis w ith intractable and extreme back pain. PROCEDURE PERFORMED: Flat back/kyphoscoliosis correction with an L2 to the pelvis, spinal exploratio n, removal of hardware, extension of a posterior spinal fusion with correction of spinal deformity to thoracic #10, placement of segmental instrumentation, L2-4 laminectomies, an L3 pedicle subtraction osteotomy on L1-2, Greene Carvalho osteotomy and L1-2 transforaminal lumbar interbody fusion, use of a utograft use of allograft, use of BMP, use of stealth navigation and use of neuromonitoring. FINDINGS: Improved spinal alignment at the end of the procedure. ESTIMATED BLOOD LOSS: 1.5 L. DESCRIPTION OF PROCEDURE: The patient was brought to the operating room and a sign-in was performed. She was given antibiotics to prevent postoperative infection. She was smoothly induced under gener al anesthesia and intubated without difficulty. Appropriate IV access was obtained. An arterial carola e was placed. A Stinson catheter was placed. Neuromonitoring electrodes were placed. SCDs were place d to prevent postoperative DVT. She was turned onto an open Mark table in a prone position. Her back was washed with chlorhexidine shampoo and rubbing alcohol. Her old incision was traced out. Ch loraPrep was used to sterilize the skin. All pressure points were padded well. Sterile field was cr eated with blue towels, and Ioban and a sterile surgical drape. Prior to the procedure, a time-out w as performed in which all members of surgery, nursing, anesthesia went over the necessary checklist i tems and agreed to proceed. 20 cc of a 0.25% Marcaine with 1:200,000 parts of epinephrine was inject ed along the planned incision line. A #10 scalpel used to incise the old skin incision into the subc utaneous layers. Self-retaining retractors were placed and Bovie electrocautery was used to complete our midline dissection. We dissected out all the patient's old hardware from L2-S1. She had previo usly had her rods removed. All of her screws were in place. We also completed our dissection up to the pedicle screw entry site of T10, being cautious not to violate the T9-10 joint space and predispo se the patient to proximal junctional kyphosis in the future. Once our dissection was complete, we p laced a spinous process clamp, draped the patient sterilely and brought the O-arm into the field to p erform a navigational spin. Accuracy was verified. We then proceeded with placement of pedicle scre ws from T10 to L1 bilaterally. This was performed without any difficulty whatsoever with the aid of neuronavigation. Once our pedicle screws were in place, we proceeded with our osteotomies. Dr. Kervin cam began with an L2-4 laminectomy and began with the L3 PSO while I began the L1-2 Greene Carvalho ost eotomy. Once I completed this osteotomy, I performed a right-sided L1-2 TLIF with an expandable cage . All the bone and the bone dust harvested during our procedures was prepped and morselized for use of autograft. When I got into the L1-2 disk space I used sequential primitivo and curette to prep the endplates and remove all of the disk and cartilaginous material. I irrigated out the disk space with copious antibiotic solution. We packed the expandable cage with some BMP and the patient's own bone . I placed a substantial amount of her own bone and bone dust down to the disk space and then placed the cage in the disk space and expanded it to its maximal height. We did place the TLIF cage with t kendall navigation. I then proceeded downward toward the L2-[address] Murillo with laminec tomies and with PSO. We cut an approximately 20 degree wedge osteotomy at L3 by removing bilateral f acets, transverse processes and drilling down the pedicles with a high-speed drill. We drilled throu gh the vertebral body all the way to the anterior longitudinal ligament. We also used navigation to assist us with the osteotomy. Prior to cutting our osteotomy, however, we did place a gunner to keep th e level stabilized and prevent it from closing prematurely. Once we completed our bony work, we plac ed a crescent cage as anteriorly as possible and then slowly and carefully closed the osteotomy while checking neuromonitoring signals along the way. The distance between L2 and L4 pedicle screws on th e left before the PSO was 7 cm and at the end it was 3 and on the right it was 5-3/4 cm and at the en d of the closure of the osteotomy it was 3.5 cm. After osteotomies were completed, we used a pulse l avage system with bacitracin irrigation to irrigate out the wound well. We measured and cut and then bent to specifications 2 long titanium rods. We ran the rods from T10 to the S2/pelvis screws bilat erally with the use of coronal and sagittal Benders. We did do our best to improve the patient's lum bar lordosis and gave her a more natural curvature. We set these rods bilaterally with set screws. We draped the patient sterilely. We brought the O-arm back into the field and performed a check spin , which showed good spinal alignment and safe position of all of her implants. We removed the O-arm from the field. We irrigated out once more. We final tightened our screws. We used a high-speed dr ill with matchstick bur. We performed our posterolateral arthrodesis with a high-speed drill. We la y our BMP as the base of our fusion substrate posterolaterally on both sides. We then placed our aut ograft and harvested bone dust and then we packed everything in tightly with the Progenix Plus putty. We placed two #7 flat SHAKIRA in the operative bed and 1 g of vancomycin powder to prevent infection. W e closed the fascia with 0 Vicryl suture. We irrigated the suprafascial compartment. We injected pl ain Marcaine in the paraspinal musculature for postoperative pain control. We closed the dermis with inverted 2 0 pop-off Vicryl suture. The skin edges approximated well. We cleaned the skin with a w et and dry sponges. We secured the drainage tubes with stitches and hooked them up to full bulb comp ression. Dermabond was used to close the skin. Once this dried, sterile dressings were placed. The patient was returned from a prone to supine position on an operating gurney, reversed from anesthesi a and extubated without difficulty. I was there for the entirety of procedure. All counts were mateo ect. There were no immediate surgical anesthetic complications. Neuromonitoring signals remained st able throughout the entire procedure. The patient was transferred directly to the ICU where she was found to be in stable medical neurologic condition. Orders were given directly to the nurses at the bedside. I updated the patient's , family, and they were very appreciative of the care she guerin d received. SECOND MACHINE ASSEMBLER SUPERVISOR: Romaine Murillo MD. COMPLICATIONS: None. DRAINS: SHAKIRA #7 x 2. IMPLANTS: Medtronic Solara 4.75 system was used. A 6.5 x 50 mm pedicle screw was placed on the left at T10. A 6.5 x 45 mm pedicle screw was placed on the right at T10, 6.5 x 50 mm pedicle screw was p laced on the left at T11, 6.5 x 45 mm pedicle screw was placed on the right at T11. A crosslink was placed between T11 and T12, 6.5 x 45 mm pedicle screws were placed bilaterally at T12, 6.5 x 50 mm pe dicle screws were placed bilaterally at L1, a 7 x 23 mm elevate expandable interbody cage was placed in the L1-2 interspace. A 7 mm x 25 mm crescent cage was placed at the site of our PSO at L3, bilate ral [id number]-[id number]-[id number] connectors were placed between T12 and L1 and between L4 and L5. Rods were run from T10 to the sacrum bilaterally and we also ran dual quad rods across our PSO and SPO through the conn ectors at T12-L1 and L4-L5. Set screws were placed and final tightened. A medium infuse BMP was imp lanted and 10 cc of Progenix Plus corticocancellous allograft/DBM putty was implanted along with the patient's own autograft. INDICATIONS FOR PROCEDURE: The patient is a 68-year-old female with a history of an L2 to the sacrum fusion by my partner, Dr. Sebastian Raymond some years ago. Over time, she has developed progressive and d ebilitating back pain, which is most certainly due to a flat back syndrome and kyphoscoliosis. She h as undergone extensive preoperative clearance including improved bone health quality for over a year now. We did attempt to operate on her at [facility] in [place] approximately 4 months ago. S hortly after initiating the procedure, she had a cardiac arrest on the operating table. She was resu scitated and is back at her baseline, but we were never able to determine the cause of her arrest. S he has been cardiac cleared and Pulmonary cleared and we have concluded this was somewhat of a freak occurrence. The patient requested we attempt her operation once more, as she is extremely debilitate d from her chronic back pain and can barely get out of the house. Risks, benefits, alternatives were discussed and she signed informed consent prior to the procedure. /[id number]/MODL
[2018-05-04] MEDS ORDERED: NS 250 ML IV ONE (11:30)
[2018-05-04] MEDS ORDERED: NS 1,000 ML IV ONE (11:30)
--- NOTE | 2018-05-04 11:46 | NEUSURGPN ---
Assessment/Plan: Assessment/Plan: POD#7 68F s/p [id number] with L12 TLIF and L3 PSO. >1L blood loss intraprocedure. SLight hypotension, improved with fluid bolus and H:H okay today continue to follow H&H while drains productive, PT/OT -continue to increase activity. Aggressive bowel protocol, miralax TID JPX1, continue DVT ppx, TRANG's, SCD's, IVC placed preoperatively, Lovenox Dispo-[facility] for deconditioning. Subjective: low back pain tolerable with medications. Objective: NAD AAOx4 MAEx4, 03/24= incision dressed, Catheter Insertion Date: 04/27/18 Neurosurgery Physical Exam - Vitals, I&O, Labs I and O 05/03/18 05/04/18 05/05/18 05:59 05:59 05:59 Intake Total 2627 400 Output Total 130 150 Balance 2497 250 Intake: Oral (ml) 350 400 IV Intake (ml) 500 IV Infused (ml) 1177 Albumin 5% 500 ml @ As 500 Directed IV ONCE ONE Rx#: [id number] NS W/ 20 KCl/L 1,000 ml @ 677 100 mls/hr IV CONT GERA Rx#:[id number] Packed Red Blood Cells ( 600 ml) Output: SHAKIRA Drain Output (ml) 130 150 Right Posterior 130 150 Other: Intake Quantity Yes Sufficient Number of Voids Toilet 2 2 1 Number of Stools Toilet 0 1 1 Vital Signs Temp Pulse Resp BP Pulse Ox 36.4 C 63 20 105/58 L 93 05/04/18 08:00 05/04/18 08:00 05/04/18 08:00 05/04/18 09:35 05/04/18 08:00 Laboratory Results 05/04/18 08:50 05/04/18 08:50 ICD10 Worksheet Patient Problems: Problems Problem Status Onset Bacteremia Acute
--- NOTE | 2018-05-04 12:04 | ASMTCMCOM ---
CM Note CM Note Notes: Spoke with patient's nurse who clarified hallucinations were medicine related and patient has been clear from them for the past 48 hours. Contacted [facility] and relayed this information. They have accepted patient and can admit over the weekend if it is needed. Let the patient and family know she is accepted with [facility] and will be transferring there for her SNF rehab. CM will follow. Date Signed: 05/04/2018 12:03 PM Electronically Signed By:Kiara Miranda LCSW
[2018-05-04] MEDS ORDERED: METHOCARBAMOL 750 MG TAB PO PRN (13:56)
[2018-05-04] MEDS: METHOCARBAMOL 500 MG TAB PO PRN (18:46)
[2018-05-04] MEDS ORDERED: SIMETHICONE 80 MG TAB CHEW PO PRN (21:11)
[2018-05-04] MEDS: traZODone 100 MG TAB PO SCH (23:02)
[2018-05-05] MEDS: ACETAMINOPHEN 500 MG TAB PO SCH ×2 (06:43→13:43)
[2018-05-05] MEDS: GABAPENTIN 300 MG CAP PO SCH ×2 (06:43→13:43)
[2018-05-05] MEDS: LEVOTHYROXINE 125 MCG TAB PO SCH (06:43)
[2018-05-05] MEDS: oxyCODONE IR 5 MG TAB PO PRN ×2 (06:44→10:47)
[2018-05-05] MEDS: METHOCARBAMOL 500 MG TAB PO PRN (06:44)
[2018-05-05] MEDS: CALCIUM CARB W/VIT D 500 MG TAB PO SCH (08:28)
[2018-05-05] MEDS: CHOLECALCIFEROL VIT D3 2,000 UNITS TAB/CAP PO SCH (08:28)
[2018-05-05] MEDS: MULTIVITAMINS 1 EACH TAB PO SCH (08:29)
[2018-05-05] MEDS: DULoxetine 60 MG CAP PO SCH (08:29)
[2018-05-05] MEDS: PANTOPRAZOLE SODIUM 40 MG TAB PO SCH (08:33)
[2018-05-05] MEDS: ENOXAPARIN 40 MG/0.4 ML SYR SC SCH (08:33)
[2018-05-05] MEDS: SENNOSIDES/DOCUSATE SODIUM TAB PO SCH (08:33)
[2018-05-05] MEDS ORDERED: oxyCODONE IR 5 MG TAB PO PRN (10:54)
--- NOTE | 2018-05-05 11:01 | PDIAF ---
- Diagnosis Code Status: Full Code - Medication Management Discharge Medications: Medications to Continue on Transfer Abaloparatide [Tymlos] 1.56 ml SQ HS 04/23/18 [Last Taken 04/26/18 22:00] Calcium Carb W/Vit D [Calcium Carb W/Vit D 500/200 (*)] 500 mg PO BID 04/23/18 [ Last Taken 04/20/18] Cholecalciferol Vit D3 [Vitamin D3 2000 units tab (OTC)] 2,000 units PO DAILY [Last Taken 04/20/18] Cyanocobalamin [Vitamin B12 1000MCG/ML (*)] 1,000 mcg IM Q30D 04/23/18 [Last Taken 04/20/18] DULoxetine [Cymbalta 60 MG (*)] 120 mg PO DAILY 04/23/18 [Last Taken 04/27/18 03 :15] Esomeprazole Magnesium [Nexium] 20 mg PO DAILY 04/23/18 [Last Taken 04/27/18 03: 15] Herbals/Supplements -Info Only 1 ea PO DAILY 04/23/18 [Last Taken 04/20/18] LORazepam [Ativan (*)] 1 mg PO HS 04/23/18 [Last Taken 04/26/18 22:00] Levothyroxine [Synthroid 125 mcg (*)] 125 mcg PO DAILY06 04/23/18 [Last Taken 03:15] Multivitamins [Multivitamin (*)] 1 each PO DAILY 04/23/18 [Last Taken 04/20/18] [place]-3 Fatty Acids [Fish Oil 1000 mg (*)] 1,000 mg PO BID 04/23/18 [Last Taken 04/20/18] Tizanidine HCl 8 mg PO Q8HRS PRN 04/23/18 [Last Taken Unknown] traZODone [traZODone 150MG (*)] 300 mg PO HS 04/23/18 [Last Taken 04/26/18 22:00 ] Acetaminophen [Tylenol ES 500 mg (*)] 1,000 mg PO Q8HRS tab 04/30/18 [Last Taken Unknown] Diazepam [Valium 5 MG (*)] 5 mg PO Q6HRS PRN #0 tab 04/30/18 [Last Taken Unknown ] Sennosides/Docusate Sodium [Senokot-S] 1 - 2 tab PO BID tab 04/30/18 [Last Taken Unknown] oxyCODONE IR [Oxycodone Ir (*)] 15 - 20 mg PO Q4HRS PRN tab 04/30/18 [Last Taken Unknown] Skilled Nursing Antibiotics: n/a Discharge Medications: Refer to the Discharge Home Medication list for PRN reason. - Orders Services needed: Registered Nurse, Physical Therapy, Occupational Therapy Diet Recommendation: no restrictions on diet Diet Texture: Regular Texture Diet Wound Care Instructions: See additional instructions Activity/Weight Bearing Restrictions: See additional instructions Additional Instructions: No bending lifting twisting > 10 lbs, walking and light activity is encouraged You may shower daily and wash your wound lightly with soap. No baths or soaking until after your post op wound check Take you Pain medications as prescribed, taper them as you are able Continue stool softeners while on pain medications We recommend you no longer wear your brace as it can disrupt wound healing. No NSAID medications (including IBProfen and Aleve) for 6 months post op F/U with Dr. Valadez in 2 weeks for a wound check Call [phone] with any additional questions or concerns. - Follow Up Care Current Providers and Referrals: CONI PICKARD [Other] Bubba Valadez MD [Medical Doctor] -
--- NOTE | 2018-05-05 11:05 | NEUSURGPN ---
Assessment/Plan: Assessment/Plan: POD#8 68F s/p [id number] with L12 TLIF and L3 PSO. >1L blood loss intraprocedure. SLight hypotension, improved with fluid bolus and H:H okay today, PT/OT -continue to increase activity. Aggressive bowel protocol, miralax TID JPX1 output 120, removed today DVT ppx, TRANG's, SCD's, IVC placed preoperatively, Lovenox Dispo-To Rehab today Discussed with Dr. Valadez Subjective: low back pain tolerable with medications. Increased pain this morning with removal or drain. No leg apin. Objective: NAD AAOx4 MAEx4, 03/24= incision clean, dry, intact, dressing reinforced after drain removal SHAKIRA site clean, dry, SHAKIRA removed without difficulty Catheter Insertion Date: 04/27/18 - Physician Discussed Patient with : [facility] Physical Exam - Vitals, I&O, Labs I and O 05/04/18 05/05/18 05/06/18 05:59 05:59 05:59 Intake Total 400 1350 Output Total 150 80 Balance 250 1270 Intake: Oral (ml) 400 900 IV Intake (ml) 450 Output: SHAKIRA Drain Output (ml) 150 80 Right Posterior 150 80 Other: Intake Quantity Yes Sufficient Number of Voids Toilet 2 1 Number of Stools Toilet 1 1 Vital Signs Temp Pulse Resp BP Pulse Ox 36.8 C 65 14 116/61 93 05/05/18 07:38 05/05/18 07:38 05/05/18 00:00 05/05/18 07:38 05/05/18 07:38 Laboratory Results 05/04/18 08:50 05/04/18 08:50 ICD10 Worksheet Patient Problems: Problems Problem Status Onset Bacteremia Acute
[2018-05-05 11:49] VITALS: BP 100/72
[2018-05-05] MEDS ORDERED: DIAZEPAM 5 MG TAB PO ONE (12:15)
[2018-05-20] MEDS ORDERED: CYANO/VITAMIN B12 1000 MCG/ML VIAL IM SCH (09:00)
== END 2018-05-05 13:56 | DRG 454 ==
LOC: F3N 05:11 → F2N 14:43
PROVIDERS: ADMIT Neurological Surgery; ATTEND Neurological Surgery
PROC: 0SG10AJ Fusion of 2 or more Lumbar Vertebral Joints with Interbody Fusion Device, Posterior Approach, Anterior Column, Open Approach (ICD-10-PCS; principal; 2018-04-27 07:15)
PROC: 0RG7071 Fusion of 2 to 7 Thoracic Vertebral Joints with Autologous Tissue Substitute, Posterior Approach, Posterior Column, Open Approach (ICD-10-PCS; principal; 2018-04-27 07:15)
PROC: 0RGA0AJ Fusion of Thoracolumbar Vertebral Joint with Interbody Fusion Device, Posterior Approach, Anterior Column, Open Approach (ICD-10-PCS; principal; 2018-04-27 07:15)
PROC: 0RG70AJ Fusion of 2 to 7 Thoracic Vertebral Joints with Interbody Fusion Device, Posterior Approach, Anterior Column, Open Approach (ICD-10-PCS; principal; 2018-04-27 07:15)
PROC: 4A1004G Monitoring of Central Nervous Electrical Activity, Intraoperative, Open Approach (ICD-10-PCS; principal; 2018-04-27 07:15)
PROC: 8E0WXBZ Computer Assisted Procedure of Trunk Region (ICD-10-PCS; principal; 2018-04-27 07:15)
PROC: 0RGA071 Fusion of Thoracolumbar Vertebral Joint with Autologous Tissue Substitute, Posterior Approach, Posterior Column, Open Approach (ICD-10-PCS; principal; 2018-04-27 07:15)
PROC: 0SP30AZ Removal of Interbody Fusion Device from Lumbosacral Joint, Open Approach (ICD-10-PCS; principal; 2018-04-27 07:15)
PROC: 0SG1071 Fusion of 2 or more Lumbar Vertebral Joints with Autologous Tissue Substitute, Posterior Approach, Posterior Column, Open Approach (ICD-10-PCS; principal; 2018-04-27 07:15)
PROC: 30233N1 Transfusion of Nonautologous Red Blood Cells into Peripheral Vein, Percutaneous Approach (ICD-10-PCS; 2018-04-27 07:15)
DX: M41.26 Other idiopathic scoliosis, lumbar region (principal); D62 Acute posthemorrhagic anemia; R00.0 Tachycardia, unspecified; R41.0 Disorientation, unspecified; G89.29 Other chronic pain; M51.36 Other intervertebral disc degeneration, lumbar region; E11.9 Type 2 diabetes mellitus without complications; J44.9 Chronic obstructive pulmonary disease, unspecified; Z87.891 Personal history of nicotine dependence
CPT/HCPCS: 97110-GP; 97116-GP; 97163-GP; 97165-GO; 97530-GO; 97530-GP; 97535-GO; C1713; G8978-GP-CL; G8979-GP-CK; G8987-GO-CK; G8988-GO-CI; J0171; J0690; J1100; J1170; J1650; J2001; J2370; J2704; J3370; J3420; J7060; P9016; P9041

== ENCOUNTER → 2018-09-24 | Outpatient (CLI) | payer OTHER, MEDICARE | LOC: BRMIMAGING 15:25 | DX: Z12.31 Encounter for screening mammogram for malignant neoplasm of breast (principal) ==